=== PATIENT | male | born 1985 | race Hispanic/Latino ===

== ENCOUNTER 2025-05-25 07:17 | Emergency (ER) | payer SELFPAY ==
--- NOTE | 2025-05-25 07:41 | EDPHYS ---
Physician Documentation [facility] Name: Jose Boggs Age: 39 yrs Sex: Male : 1985 Arrival Date: 05/25/2025 Time: 07:17 Bed IW1 Private MD: ED Physician Maurice Olson HPI: 05/25 07:42 This 39 yrs old Male presents to ER via Ambulatory with complaints of Anxiety, ms3 General Weakness. 07:42 39-year-old male with no past medical history presents to the emergency department for ms3 palpitations, leg weakness, arm numbness that began after seeing his dad unresponsive in bed. Patient denies pain. Patient states symptoms have resolved at this time. Patient states this has occurred previously when in court signing his divorce papers.. Historical: - Allergies: 07:29 No Known Allergies; iw - Home Meds: 07:29 None [Active]; iw - PMHx: 07:29 None; iw - PSHx: 07:29 None; iw - Immunization history:: Adult Immunizations not up to date. - Infectious Disease History:: Denies. - Social history:: Smoking status: Patient reports the use of cigarette tobacco products, smokes one-half pack cigarettes per day, Patient uses alcohol, on a daily basis. claims drinking about a 6 pack/day. ROS: 07:42 Constitutional: Negative for fever, and chills. Cardiovascular: Negative for chest ms3 pain, and palpitations. Respiratory: Negative for shortness of breath, cough, wheezing, and pleuritic chest pain, Abdomen/GI: Negative for abdominal pain, nausea, vomiting, diarrhea, and constipation, MS/Extremity: Negative for injury and deformity, Skin: Negative for injury, rash, and discoloration, 07:42 Psych: Positive for anxiety, Exam: 07:42 Constitutional: This is a well developed, well nourished patient who is awake, alert, ms3 and in no acute distress. Chest/axilla: Normal chest wall appearance and motion. Nontender with no deformity. Cardiovascular: Regular rate and rhythm with a normal S1 and S2. No gallops, murmurs, or rubs. Normal PMI, no JVD. No pulse deficits. Respiratory: Lungs have equal breath sounds bilaterally, clear to auscultation and percussion. No rales, rhonchi or wheezes noted. No increased work of breathing, no retractions or nasal flaring. Abdomen/GI: Soft, non-tender, with normal bowel sounds. No distension or tympany. No guarding or rebound. No evidence of tenderness throughout. MS/ Extremity: Pulses equal, no cyanosis. Neurovascular intact. Full, normal range of motion. Vital Signs: 07:27 BP 138 / 96; Pulse 98; Resp 16; Temp 98; Pulse Ox 100% on R/A; Weight 81.65 kg; Height iw 5 ft. 10 in. ; 07:27 Body Mass Index 25.83 (81.65 kg, 177.8 cm) iw MDM: 07:41 Medical Screening Exam initiated ms3 07:42 Differential diagnosis: arrythmia, dehydration, stress disorder. Data reviewed: vital ms3 signs, nurses notes, and as a result, I will discharge patient. Counseling: I had a detailed discussion with the patient and/or guardian regarding the historical points, exam findings, and any diagnostic results supporting the discharge/admit diagnosis, the need for outpatient follow up. Special discussion: I discussed with the patient/guardian in detail that at this point there is no indication for admission to the hospital. It is understood, however, that if the symptoms persist or worsen the patient needs to return immediately for re-evaluation. ED course: Discussed treatment plan for labs, EKG, chest x-ray with patient. Patient declines testing at this time. Patient is alert and orient x 4, no apparent distress, nontoxic-appearing, speaking full sentences. Patient to follow-up with Dr. Boyd in 2 to 3 days. All questions were answered. Return precautions were discussed to include worsening symptoms, shortness of breath, nausea, vomiting, or any other concerns.. 05/25 07:27 Order name: O2 Sat Monitoring; Complete Time: 07:54 ms3 Administered Medications: 07:53 Not Given (Patient Refused): aspirinchewable tablet 324 mg PO once; 81 mg tablets x 4 iw Disposition Summary: 05/25/25 07:41 Discharge Ordered Notes: Location: Home ms3 Condition: Stable ms3 Diagnosis - Acute stress reaction ms3 Followup: ms3 - With: Sudhakar Boyd DO - When: 2 - 3 days - Reason: Recheck today's complaints Discharge Instructions: - Discharge Summary Sheet ms3 - Panic Attack ms3 - Stress, Adult ms3 - Panic Attack, Meuo-hi-C[facility] ms3 Forms: - Medication Reconciliation Form ms3 - Antibiotic Education ms3 - Prescription Opioid Use ms3 - Patient Portal Instructions ms3 - Leadership Thank You Letter ms3 Signatures: Dispatcher [employer] Janel Bain, RN RN iw Maurice Olson, DO ms3 Corrections: (The following items were deleted from the chart) 07:43 07:27 BASIC METABOLIC PANEL+C.LAB.BRZ ordered. EDMS EDMS 07:43 07:27 CBC+H.LAB.BRZ ordered. EDMS EDMS 07:43 07:27 MAGNESIUM+C.LAB.BRZ ordered. EDMS EDMS 07:43 07:27 Troponin High Sensitivity+C.LAB.BRZ ordered. EDMS EDMS 07:47 07:27 Chest Single View+RAD.RAD.BRZ ordered. EDMS EDMS 07:53 07:27 Cardiac monitoring ordered. ms3 iw 07:53 07:27 IV Saline Lock ordered. ms3 iw 07:54 07:27 EKG - Nurse/Tech ordered. ms3 iw 07:54 07:27 Labs collected and sent ordered. ms3 iw 07:54 07:27 Oxygen Per Protocol ordered. ms3 iw
--- NOTE | 2025-05-25 07:41 | ER ---
Nurse's Notes [facility] Name: Jose Boggs Age: 39 yrs Sex: Male : 1985 Arrival Date: 05/25/2025 Time: 07:17 Bed IW1 Private MD: Diagnosis: Acute stress reaction Presentation: 05/25 07:27 Chief complaint: Patient states: started felling shaky. anxious, felt like his BP was iw high and his left arm was numb , started after seeing his father unconscious. Coronavirus screen: At this time, the client does not indicate any symptoms associated with coronavirus-19. Ebola Screen: No symptoms or risks identified at this time. Initial Sepsis Screen: Does the patient meet any 2 criteria? No. Patient's initial sepsis screen is negative. Does the patient have a suspected source of infection? No. Patient's initial sepsis screen is negative. Risk Assessment: Do you want to hurt yourself or someone else? Patient reports no desire to harm self or others. Onset of symptoms was May 25, 2025. 07:27 Method Of Arrival: Ambulatory iw 07:27 Acuity: ALCIDES 3 iw Historical: - Allergies: 07:29 No Known Allergies; iw - Home Meds: 07:29 None [Active]; iw - PMHx: 07:29 None; iw - PSHx: 07:29 None; iw - Immunization history:: Adult Immunizations not up to date. - Infectious Disease History:: Denies. - Social history:: Smoking status: Patient reports the use of cigarette tobacco products, smokes one-half pack cigarettes per day, Patient uses alcohol, on a daily basis. claims drinking about a 6 pack/day. Vital Signs: 07:27 BP 138 / 96; Pulse 98; Resp 16; Temp 98; Pulse Ox 100% on R/A; Weight 81.65 kg; Height iw 5 ft. 10 in. ; 07:27 Body Mass Index 25.83 (81.65 kg, 177.8 cm) iw ED Course: 07:21 Patient arrived in ED. iw 07:22 Maurice Olson DO is Attending Physician. ms3 07:28 Triage completed. iw 07:41 Sudhakar Boyd DO is Referral Physician. ms3 07:53 Janel Araiza, RN is Primary Nurse. iw Administered Medications: 07:53 Not Given (Patient Refused): aspirinchewable tablet 324 mg PO once; 81 mg tablets x 4 iw Outcome: 07:41 Discharge ordered by ms3 07:54 Patient left the ED. iw Signatures: Janel Araiza RN RN iw Maurice Olson DO DO ms3 Corrections: (The following items were deleted from the chart) 07:30 07:27 BP 138 / 96; Pulse 98bpm; Resp 16bpm; Pulse Ox 100% RA; iw iw
[2025-05-25 08:15] VITALS: BP 138/96; TEMP 98; O2SAT 100
== END 2025-05-25 07:54 | disposition home or self-care (01) ==
LOC: ER 07:17
DX: F43.0 Acute stress reaction (principal)
CPT/HCPCS: 99281